=== PATIENT | male | born 1935 | race Caucasian/White ===

== ENCOUNTER → 2016-11-25 | Outpatient (CLI) | payer MEDICARE, OTHER ==
[~2016-11-25] MED LIST: REGADENOSON 0.4 MG/5 ML DISP.SYRIN. IV ONE; SULFUR HEXAFLUORIDE MICROSPHR 25 MG VIAL. IVP ONE
== END | disposition home or self-care (01) ==
LOC: PCVCIMAG 09:02
PROVIDERS: ATTEND Internal Medicine Cardiovascular Disease
DX: I25.5 Ischemic cardiomyopathy (principal); I73.9 Peripheral vascular disease, unspecified; I48.91 Unspecified atrial fibrillation; E11.9 Type 2 diabetes mellitus without complications; I25.10 Atherosclerotic heart disease of native coronary artery without angina pectoris; Z95.0 Presence of cardiac pacemaker
CPT/HCPCS: 78452; 80061; 93017; 93306; A9500; G0463; J2785; Q9950

== ENCOUNTER → 2016-11-30 | Outpatient (CLI) | payer MEDICARE, OTHER ==
[~2016-11-30] MED LIST changes: +DIAZEPAM 10 MG TABLET. ONE; +IOHEXOL 350 MG/ML 100 ML VIAL. ONE; +IOHEXOL 350 MG/ML 50 ML VIAL. ONE; +IV NORMAL SALINE 1000ML BAG 0 ML ONE; +IV NORMAL SALINE 1000ML BAG 1,000 ML ONE; +LIDOCAINE 1% Multi-Dose 20 ML VIAL. ONE; +MIDAZOLAM HCL/PF 2 MG/2 ML VIAL. ONE; -REGADENOSON 0.4 MG/5 ML DISP.SYRIN. IV ONE; -SULFUR HEXAFLUORIDE MICROSPHR 25 MG VIAL. IVP ONE; +fentaNYL PF VIAL 100 MCG/2 ML VIAL ONE
== END ==
LOC: PCVCINTER 07:32
PROVIDERS: ATTEND Nuclear Medicine Nuclear Cardiology
DX: I25.810 Atherosclerosis of coronary artery bypass graft(s) without angina pectoris (principal); E11.22 Type 2 diabetes mellitus with diabetic chronic kidney disease; I13.10 Hypertensive heart and chronic kidney disease without heart failure, with stage 1 through stage 4 chronic kidney disease, or unspecified chronic kidney disease; N18.9 Chronic kidney disease, unspecified; I73.9 Peripheral vascular disease, unspecified; E78.00 Pure hypercholesterolemia, unspecified; Z88.2 Allergy status to sulfonamides; Z79.899 Other long term (current) drug therapy; Z95.810 Presence of automatic (implantable) cardiac defibrillator; Z90.49 Acquired absence of other specified parts of digestive tract; Z79.4 Long term (current) use of insulin; Z98.890 Other specified postprocedural states; Z96.643 Presence of artificial hip joint, bilateral; Z87.891 Personal history of nicotine dependence; Z82.49 Family history of ischemic heart disease and other diseases of the circulatory system
CPT/HCPCS: 93461; 99152; 99153; C1751; C1760; C1769; C1894; J2250; J3010; J7030; Q9967; J1265

== ENCOUNTER → 2017-06-22 | Outpatient (CLI) | payer MEDICARE, OTHER ==
--- NOTE | 2017-06-22 17:14 | PCVCIMAG ---
APPROVED REPORT Study performed: 06/22/2017 14:39:31 EXAM: Comprehensive 2D, Doppler, and color-flow Echocardiogram Patient Location: Echo lab Room #: 3Status: routine BSA: 2.06 HR: 60 bpmBP: 112/62 mmHg Rhythm: Atrial Fibrillation/PACED Other Information Study Quality: Adequate Indications Pacemaker CAD Cardiomyopathy 2D Dimensions LVEF(%): 44.68 (>50%) IVSd: 11.53 (7-11mm)LVOT Diam: 18.50 (18-24mm) LVDd: 53.46 mm PWd: 9.60 (7-11mm) LVDs: 41.50 (25-40mm) Left Atrium: 38.32 (27-40mm) LV Single Plane 4CH: 44.81 % LV Single Plane 2CH: 39.13 %Lopez's LVEF: 41.97 % Biplane EF: 41.1 % Volumes Left Atrial Volume (Systole) Single Plane 4CH: 58.59 mLSingle Plane 2CH: 76.44 mL Biplane LA Volume: 73.00 mLLA ESV Index: 36.00 mL/m2 Aortic Valve AoV Peak Charlie.: 1.22 m/s AO Peak Gr.: 6.04 mmHgLVOT Max P.63 mmHg LVOT Max V: 0.64 m/s QUIN Vmax: 1.40 cm2 Mitral Valve E/A Ratio: 0.9 MV Decel. Time: 153.95 ms MV E Max Charlie.: 0.64 m/s MV A Charlie.: 0.73 m/s MV PHT: 44.64 ms IVRT: 76.12 ms Pulmonary Vein P Vein S: 0.59 m/sP Vein A: 0.22 m/s P Vein D: 0.67 m/sP Vein A Dur.: 103.8 msec P Vein S/D Ratio: 0.88 Tricuspid Valve TR Peak Charlie.: 2.47 m/s TR Peak Gr.: 24.32 mmHg TV Vmax: 0.59 m/sPA Pressure: 31.00 mmHg Left Ventricle Left ventricle is grossly normal size. Apical aneurysm is present. Paradoxical septal motion consistent with paced rhythm.Apical anterior,lateral hypokinesis with dilitation..Basal-mid inferior hypokinesis Mild concentric left ventricular hypertrophy. Left ventricular systolic function is moderately decreased. LVEF is 40-45%. This study is not technically sufficient to allow evaluation of the LV diastolic function due to atrial fibrillation. Right Ventricle The right ventricle is normal size. The right ventricular systolic function is normal. Atria Left atrium is mildly dilated. Pacemaker lead is present in the right atrium. Aortic Valve The aortic valve is normal in structure. Mild aortic regurgitation. There is no aortic valvular stenosis. Mitral Valve The mitral valve is normal in structure. Mitral regurgitation jet is eccentrically directed. Moderate to severe mitral regurgitation. No evidence of mitral valve stenosis. Tricuspid Valve The tricuspid valve is normal in structure. Mild tricuspid regurgitation with a PA pressure of 31mmHg. Pulmonic Valve The pulmonary valve is normal in structure. There is no pulmonic valvular regurgitation. Great Vessels The aortic root is normal in size. The ascending aorta is normal in size. IVC is normal in size and collapses with >50% inspiration Pericardium There is no pericardial effusion. Moderate pleural effusion. <Conclusion> Left ventricle is grossly normal size. Apical aneurysm is present. Mild concentric left ventricular hypertrophy. Left ventricular systolic function is moderately decreased. LVEF is 40-45%. This study is not technically sufficient to allow evaluation of the LV diastolic function due to atrial fibrillation. The right ventricle is normal size. Left atrium is mildly dilated. Pacemaker lead is present in the right atrium. Mild aortic regurgitation. There is no aortic valvular stenosis. Mitral regurgitation jet is eccentrically directed. Moderate to severe mitral regurgitation. Mild tricuspid regurgitation with a PA pressure of 31mmHg. There is no pericardial effusion. Mod pleural effusion
== END | disposition home or self-care (01) ==
LOC: PCVCIMAG 13:27
PROVIDERS: ATTEND Internal Medicine Cardiovascular Disease
DX: I13.0 Hypertensive heart and chronic kidney disease with heart failure and stage 1 through stage 4 chronic kidney disease, or unspecified chronic kidney disease (principal); E11.22 Type 2 diabetes mellitus with diabetic chronic kidney disease; N18.4 Chronic kidney disease, stage 4 (severe); I08.3 Combined rheumatic disorders of mitral, aortic and tricuspid valves; I25.10 Atherosclerotic heart disease of native coronary artery without angina pectoris; I48.91 Unspecified atrial fibrillation; I25.5 Ischemic cardiomyopathy; I73.9 Peripheral vascular disease, unspecified; E78.5 Hyperlipidemia, unspecified; R53.83 Other fatigue; R06.09 Other forms of dyspnea; R60.0 Localized edema; J90 Pleural effusion, not elsewhere classified; Z95.810 Presence of automatic (implantable) cardiac defibrillator; Z95.1 Presence of aortocoronary bypass graft; Z82.49 Family history of ischemic heart disease and other diseases of the circulatory system; Z87.891 Personal history of nicotine dependence; Z79.899 Other long term (current) drug therapy; Z79.82 Long term (current) use of aspirin
CPT/HCPCS: 80061; 93005; 93306; G0463